=== PATIENT | female | born 1995 | race Caucasian/White ===

== ENCOUNTER 2019-04-13 15:37 | Emergency (ER) | payer BC ==
[2019-04-13] MEDS ORDERED: cephALEXin 250 MG CAPSULE PO STA (15:47)
[2019-04-13] MEDS ORDERED: LIDOCAINE 2% 10 ML MDV SUBQ STA (15:47)
--- NOTE | 2019-04-13 15:50 | ED Physician Documentation ---
PD HPI LOWER EXT INJURY - Stated complaint Stated Complaint: RT KNEE INJ - Chief complaint Chief Complaint: Laceration - History obtained from History obtained from: Patient (24-year-old female slipped and fell onto the knee suffer a laceration of 5 cm. There is small amount of bleeding. This happened 2-hour prior to arrival. No other injury.) - History of Present Illness PD HPI LOW EXT INJURY LOCATION: Right (knee) Review of Systems Ten Systems: 10 systems reviewed and negative Constitutional: reports: Reviewed and negative Eyes: reports: Reviewed and negative Ears: reports: Reviewed and negative Nose: reports: Reviewed and negative Throat: reports: Reviewed and negative Cardiac: reports: Reviewed and negative Respiratory: reports: Reviewed and negative GI: reports: Reviewed and negative : reports: Reviewed and negative Skin: reports: Reviewed and negative Musculoskeletal: reports: Joint pain Neurologic: reports: Reviewed and negative Psychiatric: reports: Reviewed and negative Endocrine: reports: Reviewed and negative Immunocompromised: reports: Reviewed and negative PD PAST MEDICAL HISTORY - Past Medical History Past Medical History: No - Present Medications Home Medications: Ambulatory Orders Medication Instructions Recorded Confirmed Cephalexin [Keflex] 500 mg PO Q6H #28 capsule 04/13/19 - Allergies Allergies/Adverse Reactions: Allergies Allergy/AdvReac Type Severity Reaction Status Date / Time No Known Drug Allergies Allergy Verified 04/13/19 15:43 PD ED PE NORMAL - Vitals Vital signs reviewed: Yes - General General: Alert and oriented X 3, No acute distress - HEENT HEENT: PERRL - Neck Neck: Supple, no meningeal sign - Cardiac Cardiac: RRR, No murmur - Respiratory Respiratory: Clear bilaterally - Abdomen Abdomen: Normal bowel sounds, Soft, Non tender, Non distended - Derm Derm: Warm and dry - Extremities Extremities: Other (laceration of 5 cm right knee, patella area. ) - Neuro Neuro: Alert and oriented X 3 - Psych Psych: Normal mood, Normal affect Results - Vitals Vitals: Vital Signs - 24 hr 04/13/19 04/13/19 15:41 17:29 Temperature 36.6 C Heart Rate 93 84 Respiratory 17 14 Rate Blood Pressure 126/86 H 126/82 H O2 Saturation 98 99 Oxygen O2 Source Room air - Rads (name of study) No standard instances Radiology: Final report received (Normal knee radiography, no fracture) Procedures - Laceration (location) Lower extremity Wound type: Linear, Into subcut fat, Contaminated Neurovascular status: Sensory intact, Motor intact, Vascular intact Anesthesia: Lidocaine 2% (8ml) Wound Preparation: Hibiclens, Irrigated copiously NS Skin layer closure: Nylon, Size #-0 - enter number (4), Sutures - enter # (6) Other: Patient tolerated well, No complications, Neurovascular intact, Dressing applied Complexity: Simple PD MEDICAL DECISION MAKING - ED course Complexity details: d/w patient ED course: Patient tolerated procedure well. It was irrigated copiously by registered nurse. Wound was then closed with simple stitches. She is encouraged to follow-up with her primary care doctor in 7 days for wound recheck.. Patient is reassessed At 5:15 PM and disclosed negative x-ray of the right knee. She is asked to follow-up with her primary care doctor for further management. Clean the wound daily. Suture removal in 7 to 10 days. Departure - Departure Disposition: 01 Home, Self Care Clinical Impression: Laceration Condition: Stable Instructions: ED Laceration Sure Close Follow-Up: JES CARRERO [Primary Care Provider] - Prescriptions: Cephalexin [Keflex] 500 mg PO Q6H #28 capsule Comments: Please clean the wound daily and follow-up with your primary care doctor in 7 days for recheck and suture removal. Discharge Date/Time: 04/13/19 17:30
--- NOTE | 2019-04-13 17:21 | XRAY Report ---
Reason: fall Procedure Date: 04/13/2019 Accession Number: [id number] / [id number] Procedure: XR - Knee 3 View RT CPT Code: Final Report FULL RESULT: EXAM: RIGHT KNEE RADIOGRAPHY EXAM DATE: 04/13/2019 05:03 PM. CLINICAL HISTORY: Right knee pain after a fall COMPARISON: None. TECHNIQUE: 3 views. FINDINGS: Bones: Normal. No fractures or bone lesions. Joints: Normal. No effusion. No subluxations. Soft Tissues: Normal. No soft tissue swelling. IMPRESSION: Normal knee radiography. [facility]
[2019-04-13 17:30] VITALS: BP 126/82
== END 2019-04-13 17:30 | disposition home or self-care (01) ==
LOC: ED 15:37
DX: S81.011A Laceration without foreign body, right knee, initial encounter (principal); W01.0XXA Fall on same level from slipping, tripping and stumbling without subsequent striking against object, initial encounter; Y92.480 Sidewalk as the place of occurrence of the external cause
CPT/HCPCS: 12002; 73562; 99283; 99284; A9270